=== PATIENT | female | born 1945 ===

== ENCOUNTER 2016-08-29 17:09 | Inpatient (IN) | payer OTHER, MEDICAID ==
[2016-08-29 17:30] VITALS: BMI 28.7
[2016-08-29] MEDS ORDERED: Naproxen 500 MG TAB PO PRN (20:35)
[2016-08-29] MEDS ORDERED: Lidocaine 5% Patch TD PRN (20:35)
[2016-08-29] MEDS: Insulin Regular 100 units/ml SC SCH (22:06)
--- NOTE | 2016-08-29 23:53 | CP.PCM.HP ---
History of Present Illness - History of Present Illness History of Present Illness: PCP: not on staff Chief Complaint: Generalized weakness, HPI: 71 years old female with Hx of DDD, Right shoulder calcific Tendonitis, Anxiety, HTN, HLD, DM II, Transferred from [facility] ([facility] for continuation of treatment. She was admitted on 08/23/16 at the [facility] ([facility]) for low blood sugar,associated with weakness worse on the right side than the left extremities. She uses a cane since 2010 after she fell.She has chronic abdominal and Pelvic pain also pain to Poaterion left thigh, her blood sugar is improving but her Pains, body aches persists. No fever, nausea, vomits , diarrhea nor chest pain. PMH: Lower back pain; DDD; Degenerative Arthritis of knee; calcific Tendonitis of the right shoulder; Mild DiastolicDysfunction; Anxiety; Asthma; DM II; HTN; HLD PSH: No known Past surgical hx SH: former smoker 26 years quit; Quit Alcohol 1988 FH: No known family hx Allergies: NKDA Present on Admission - Present on Admission Any Indicators Present on Admission: No History of DVT/PE: No History of Uncontrolled Diabetes: No Urinary Catheter: No Decubitus Ulcer Present: No Review of Systems - Constitutional Constitutional: absent: Anorexia, Chills, Fatigue, Fever, Headache - EENT Eyes: Requires Corrective Lenses. absent: Diplopia, Floaters, Sees Flashes Ears: absent: Decreased Hearing, Ear Discharge, Ear Pain, Tinnitus Nose/Mouth/Throat: absent: Epistaxis, Nasal Congestion, Nasal Discharge, Sinus Pain, Sinus Pressure - Cardiovascular Cardiovascular: absent: Chest Pain, Dyspnea, Edema - Respiratory Respiratory: absent: Cough, Stridor, Chest Congestion - Gastrointestinal Gastrointestinal: absent: Constipation, Diarrhea, Heartburn - Genitourinary Genitourinary: absent: Dysuria, Flank Pain, Hematuria, Pyuria, Urinary Hesitance - Musculoskeletal Musculoskeletal: Arthralgias. absent: Muscle Weakness, Myalgias - Integumentary Integumentary: absent: Pruritus, Rash, Skin Ulcer, Sores, Striae, Swelling - Neurological Neurological: absent: Confusion, Dizziness, Focal Weakness, Headaches - Psychiatric Psychiatric: Anxiety. absent: Confusion, Depression, Panic Attacks - Endocrine Endocrine: absent: Palpitations, Polydipsia, Polyphagia, Polyuria - Hematologic/Lymphatic Hematologic: absent: Easy Bleeding, Easy Bruising Past Patient History - Infectious Disease Hx of Infectious Diseases: None - Past Medical History & Family History Past Medical History?: Yes - Past Social History Smoking Status: Never Smoked Chewing Tobacco Use: No Cigar Use: No Alcohol: None Drugs: Denies Home Situation {Lives}: With Family - CARDIAC Hx Cardiac Disorders: No Hx Hypercholesterolemia: Yes Hx Hypertension: Yes - PULMONARY Hx Asthma: Yes - NEUROLOGICAL Hx Neurological Disorder: Yes Hx Vertigo: Yes - HEENT Hx HEENT Problems: No - RENAL Hx Chronic Kidney Disease: No - ENDOCRINE/METABOLIC Hx Diabetes Mellitus Type 2: Yes - HEMATOLOGICAL/ONCOLOGICAL Hx Blood Disorders: No Hx Blood Transfusions: No - INTEGUMENTARY Hx Dermatological Problems: No - MUSCULOSKELETAL/RHEUMATOLOGICAL Hx Arthritis: Yes Hx Falls: Yes - GASTROINTESTINAL Hx Gastrointestinal Disorders: Yes Hx Hemorrhoids: Yes - GENITOURINARY/GYNECOLOGICAL Hx Genitourinary Disorders: No - PSYCHIATRIC Hx Anxiety: Yes Hx Substance Use: No - SURGICAL HISTORY Hx Surgeries: Yes Other/Comment: Bladder Mesh , 3 Yrs Ago. - ANESTHESIA Hx Anesthesia: Yes Hx Anesthesia Reactions: No Hx Malignant Hyperthermia: No Meds Allergies/Adverse Reactions: Allergies Allergy/AdvReac Type Severity Reaction Status Date / Time No Known Allergies Allergy Verified 08/23/16 02:34 Physical Exam - Head Exam Head Exam: ATRAUMATIC, NORMAL INSPECTION, NORMOCEPHALIC - Eye Exam Eye Exam: EOMI, Normal appearance Pupil Exam: NORMAL ACCOMODATION, PERRL - ENT Exam ENT Exam: Mucous Membranes Moist, Normal Exam, Normal External Ear Exam, Normal Oropharynx - Neck Exam Neck exam: Positive for: Full Rom, Normal Inspection. Negative for: Lymphadenopathy, Tenderness - Respiratory Exam Respiratory Exam: Clear to Auscultation Bilateral. absent: Rales, Rhonchi, Wheezes - Cardiovascular Exam Cardiovascular Exam: REGULAR RHYTHM, +S1, +S2. absent: Gallop, RRR - GI/Abdominal Exam GI & Abdominal Exam: Normal Bowel Sounds, Soft. absent: Mass, Organomegaly, Tenderness - Rectal Exam Rectal Exam: Deferred - Extremities Exam Extremities exam: Positive for: full ROM, normal inspection. Negative for: calf tenderness, joint swelling - Back Exam Back exam: NORMAL INSPECTION. absent: CVA tenderness (L), CVA tenderness (R) - Neurological Exam Neurological exam: Alert, CN II-XII Intact, Oriented x3, Reflexes Normal - Psychiatric Exam Psychiatric exam: Normal Affect, Normal Mood - Skin Skin Exam: Dry, Intact, Normal Color, Pallor Results - Vital Signs Recent Vital Signs: Last Vital Signs Temp 97.9 F 08/29/16 20:23 Pulse 68 08/29/16 20:23 Resp 20 08/29/16 20:23 BP 145/68 08/29/16 20:23 Pulse Ox 100 08/29/16 20:23 - Labs Result Diagrams: 08/30/16 07:30 08/30/16 07:30 Labs: Laboratory Results - last 24 hr 08/29/16 21:06 POC Glucose (mg/dL) 300 H Assessment & Plan - Assessment and Plan (Free Text) Assessment: #. Weakness #. DM with hyperglycemia #. Hypoglycemia #. Dehydration #. Anemia #. HTN Plan: 71 years old female with Hx of DDD, Right shoulder calcific Tendonitis, Anxiety , HTN, HLD, DM II, Transferred from [facility] ([facility] for continuation of treatment. She was admitted on 08/23/16 at the [facility] for low blood sugar,associated with weakness worse on the right side than the left extremities. She uses a cane since 2010 after she fell. #. Weakness - Physical Therapy/ occupational therapy #. DM with hyperglycemia - Diabetic Diet - Metformin/Aspart sliding scale according to sliding scale - HbA1c 6.6 on 08/26/16 #. Hypoglycemia - Metformin once daily isntead of BID - Levemir HS and not BIDMonitor patients diet - monitor Blood glucoseACHS #. Dehydration - Encourage Oral fluids - follow renal labs weekly #. Anemia - follow Hb DVT prophylaxis with Lovenox # Code Status: Full - Date & Time Date: 08/29/16 Time: 23:52
[2016-08-30] MEDS: Insulin Regular 100 units/ml SC SCH ×4 (06:35→21:34)
[2016-08-30 08:15] LABS: HEMATOCRIT 30.8 % (34.0-47.0); MEAN CELL VOLUME 84.4 fl (81.0-99.0); MEAN CORPUSCULAR HEMOGLOBIN 27.9 pg (27.0-31.0); MEAN CORPUSCULAR HGB CONC 33.1 g/dL (33.0-37.0); RED CELL DISTRIBUTION WIDTH 14.1 % (11.5-14.5); WHITE BLOOD COUNT 7.3 K/uL (4.8-10.8)
[2016-08-30 08:25] LABS: BLOOD UREA NITROGEN 19 mg/dl (7-17); CALCIUM 8.8 mg/dL (8.4-10.2); CARBON DIOXIDE 27 mmol/L (22-30); CHLORIDE 104 mmol/L (98-107); GFR AFRICAN-AMERICAN > 60; GLUCOSE,RANDOM 200 mg/dL (65-105); POTASSIUM 4.6 MMOL/L (3.6-5.0); SODIUM 141 mmol/l (132-148)
[2016-08-30 08:42] LABS: PARTIAL THROMBOPLASTIN TIME 25.4 SECONDS (23.3-32.5)
[2016-08-30] MEDS: Lidocaine 5% Patch TD SCH (08:59)
[2016-08-30] MEDS: Pantoprazole 40 mg EC Tab PO SCH (08:59)
[2016-08-30] MEDS: Enoxaparin 40 mg Syringe SC SCH (09:00)
[2016-08-30] MEDS ORDERED: Insulin Regular 100 units/ml SC ONE (11:30)
[2016-08-31] MEDS: Insulin Regular 100 units/ml SC SCH ×4 (06:49→21:51)
[2016-08-31] MEDS: Naproxen 500 MG TAB PO PRN (08:42)
[2016-08-31] MEDS: Pantoprazole 40 mg EC Tab PO SCH (08:43)
[2016-08-31] MEDS: Enoxaparin 40 mg Syringe SC SCH (08:43)
[2016-08-31] MEDS: Lidocaine 5% Patch TD SCH (08:44)
--- NOTE | 2016-08-31 14:28 | CP.PCM.PN ---
Subjective - Date & Time of Evaluation Date of Evaluation: 08/31/16 Time of Evaluation: 15:30 - Subjective Subjective: Patient was seen and evaluated . Sitting in the chair in NAD. Patient was transferred from [facility] for physical therapy due to her unstable gait, knee and hip pain. As per staff patient is insisting that she was told she needed to have an US done for her left hip pain that was not performed. All chart and prior medical records reviewed. Patient was seen at [facility] ER 08/16/16 for left hip pain of 1 day duration , with no history of trauma . Patient had pelvis, Left knee and left foot imaging that showed no acute fracture or dislocation and was discharged home. This time patient sent to [facility] for hypoglycemia episode and transferred [facility] for [facility] due to her gait instability , hip and knee pain.She denies any recent trauma or fall. Explained to patient results of imaging performed 08/16 by showing the Xray-s in the computer , but patient seems to be convinced that she did not have any imaging done and that the chart most likely is tampered with. During the conversation patient seems to go back and forth, bringing up her old admissions at [facility] , [facility], [place] complaining and being discontent . Appears to anxious,refusing to say the name of her PMD, not giving permission to call her daughter. At present explained to the patient that she has been transferred from [facility] to [facility] for physical therapy due to her unstable gait, knee and kip pain and that we will do our best to help her to achieve `her goals. At this point in time there is no need for further imaging. Will follow up Objective - Vital Signs/Intake and Output Vital Signs (last 24 hours): Temp Pulse Resp BP Pulse Ox 97.8 F 72 20 136/59 L 99 08/31/16 08:21 08/31/16 08:21 08/31/16 08:21 08/31/16 08:21 08/31/16 08:21 - Medications Medications: Current Medications Acetaminophen (Tylenol 325mg Tab) 650 mg PO Q6 PRN PRN Reason: moderate pain Atorvastatin Calcium (Lipitor) 20 mg PO HS [facility] Last Admin: 08/30/16 21:34 Dose: 20 mg Enoxaparin Sodium (Lovenox) 40 mg SC DAILY [facility] PRN Reason: Protocol Last Admin: 08/31/16 08:43 Dose: 40 mg Insulin Human Regular (Humulin R) 0 units SC ACHS [facility] PRN Reason: Protocol Last Admin: 08/31/16 12:04 Dose: 5 units Lidocaine (Lidoderm) 1 ea TD DAILY [facility] Last Admin: 08/31/16 08:44 Dose: 1 ea Metformin HCl (Glucophage) 1,000 mg PO BRK [facility] Last Admin: 08/31/16 08:41 Dose: 1,000 mg Naproxen (Naproxen) 500 mg PO BID PRN PRN Reason: Pain Last Admin: 08/31/16 08:42 Dose: 500 mg Pantoprazole Sodium (Protonix Ec Tab) 40 mg PO DAILY [facility] Last Admin: 08/31/16 08:43 Dose: 40 mg - Labs Labs: 08/30/16 07:30 08/30/16 07:30 PT 10.3 SECONDS (9.6-11.2) 08/30/16 07:30 INR 0.99 (0.92-1.08) 08/30/16 07:30 APTT 25.4 SECONDS (23.3-32.5) 08/30/16 07:30 - Constitutional Appears: Non-toxic, No Acute Distress, Agitated - Head Exam Head Exam: ATRAUMATIC, NORMOCEPHALIC - Eye Exam Eye Exam: Normal appearance Pupil Exam: NORMAL ACCOMODATION - ENT Exam ENT Exam: Mucous Membranes Moist, Normal Exam - Neck Exam Neck Exam: Normal Inspection - Respiratory Exam Respiratory Exam: NORMAL BREATHING PATTERN. absent: Accessory Muscle Use, Respiratory Distress - Rectal Exam Rectal Exam: Deferred - Extremities Exam Extremities Exam: Normal Capillary Refill. absent: Joint Swelling, Pedal Edema - Neurological Exam Neurological Exam: Alert, Awake Additional comments: no gross neuro deficits - Psychiatric Exam Psychiatric exam: Agitated, Anxious Additional comments: disperse thought process - Skin Skin Exam: Normal Color Assessment and Plan - Assessment and Plan (Free Text) Assessment: 71 years old female with Hx of DDD, Right shoulder calcific Tendonitis, Anxiety , HTN, HLD, DM II, Transferred from [facility] for phyysical therapy due to unstable gait She was admitted on 08/23/[address] [facility] for low blood sugar,associated with weakness worse on the right side than the left extremities. She uses a cane since 2010 after she fell. 1.Unstable gait due to multiple DJD / knee, hip and generalized Weakness Continue Physical Therapy/ occupational therapy in TCU Imaging of hip , left knee , left foot and hip done at [facility] showed no fracture or dislocation No further imaging necessary Continue pain management , Lidoderm patch, naproxen 2. DM with hyperglycemia Continue Diabetic Diet Changed Metformin to 1000 mg daily and Regular insulin once a day Continue Aspart sliding scale HbA1c 6.6 on 08/26/16 3.Anemia unclear etiology 4. Dyslipidemia on statin 5. Anxiety 6.DVT prophylaxis Lovenox
[2016-09-01] MEDS: Insulin Regular 100 units/ml SC SCH ×4 (08:40→21:35)
[2016-09-01] MEDS: Lidocaine 5% Patch TD SCH (08:59)
[2016-09-01] MEDS: Pantoprazole 40 mg EC Tab PO SCH (08:59)
[2016-09-01] MEDS: Enoxaparin 40 mg Syringe SC SCH (09:01)
[2016-09-01] MEDS: Naproxen 500 MG TAB PO PRN (18:45)
[2016-09-02] MEDS: Insulin Regular 100 units/ml SC SCH ×4 (06:43→21:17)
[2016-09-02] MEDS: Naproxen 500 MG TAB PO PRN (08:58)
[2016-09-02] MEDS: Pantoprazole 40 mg EC Tab PO SCH (08:58)
[2016-09-02] MEDS: Lidocaine 5% Patch TD SCH (08:59)
[2016-09-02] MEDS: Enoxaparin 40 mg Syringe SC SCH (08:59)
[2016-09-03] MEDS: Insulin Regular 100 units/ml SC SCH ×4 (06:59→21:36)
[2016-09-03] MEDS: Pantoprazole 40 mg EC Tab PO SCH (09:07)
[2016-09-03] MEDS: Lidocaine 5% Patch TD SCH (09:07)
[2016-09-03] MEDS: Naproxen 500 MG TAB PO PRN (17:44)
[2016-09-03 19:14] LABS: PARTIAL THROMBOPLASTIN TIME 34.8 Seconds (25.6-37.1)
[2016-09-04] MEDS: Insulin Regular 100 units/ml SC SCH ×4 (06:39→21:26)
[2016-09-04] MEDS: Pantoprazole 40 mg EC Tab PO SCH (09:26)
[2016-09-04] MEDS: Lidocaine 5% Patch TD SCH (09:27)
[2016-09-04 13:00] LABS: BLOOD UREA NITROGEN 30 mg/dl (7-17); CALCIUM 9.5 mg/dL (8.4-10.2); CARBON DIOXIDE 27 mmol/L (22-30); CHLORIDE 102 mmol/L (98-107); GFR AFRICAN-AMERICAN > 60; GLUCOSE,RANDOM 270 mg/dL (65-105); POTASSIUM 4.5 MMOL/L (3.6-5.0); SODIUM 139 mmol/l (132-148)
[2016-09-04] MEDS: Enoxaparin 40 mg Syringe SC SCH (16:02)
[2016-09-04] MEDS: Naproxen 500 MG TAB PO PRN (21:58)
[2016-09-05] MEDS: Insulin Regular 100 units/ml SC SCH ×4 (06:33→22:04)
[2016-09-05 08:05] VITALS: RESP 20
[2016-09-05] MEDS: Enoxaparin 40 mg Syringe SC SCH (09:05)
[2016-09-05] MEDS: Pantoprazole 40 mg EC Tab PO SCH (09:06)
[2016-09-05] MEDS: Naproxen 500 MG TAB PO PRN (09:07)
[2016-09-05] MEDS: Lidocaine 5% Patch TD SCH (09:08)
--- NOTE | 2016-09-05 11:43 | CP.PCM.PN ---
Subjective - Date & Time of Evaluation Date of Evaluation: 09/05/16 Time of Evaluation: 11:40 - Subjective Subjective: patient seen during physical therapy patient doing well, ambulating with therapist without difficulty patient OK for dc tomorow Objective - Vital Signs/Intake and Output Vital Signs (last 24 hours): Temp Pulse Resp BP Pulse Ox 97.3 F L 70 20 159/69 H 100 09/05/16 08:01 09/05/16 08:01 09/05/16 08:01 09/05/16 08:01 09/05/16 08:01 - Medications Medications: Current Medications Acetaminophen (Tylenol 325mg Tab) 650 mg PO Q6 PRN PRN Reason: moderate pain Atorvastatin Calcium (Lipitor) 20 mg PO HS [facility] Last Admin: 09/04/16 21:26 Dose: 20 mg Enoxaparin Sodium (Lovenox) 40 mg SC DAILY [facility] PRN Reason: Protocol Last Admin: 09/05/16 09:05 Dose: 40 mg Insulin Human Regular (Humulin R) 0 units SC ACHS [facility] PRN Reason: Protocol Last Admin: 09/05/16 06:33 Dose: 3 units Lidocaine (Lidoderm) 1 ea TD DAILY [facility] Last Admin: 09/05/16 09:08 Dose: 1 ea Metformin HCl (Glucophage) 1,000 mg PO BRK [facility] Last Admin: 09/05/16 08:00 Dose: 1,000 mg Naproxen (Naproxen) 500 mg PO BID PRN PRN Reason: Pain Last Admin: 09/05/16 09:07 Dose: 500 mg Pantoprazole Sodium (Protonix Ec Tab) 40 mg PO DAILY [facility] Last Admin: 09/05/16 09:06 Dose: 40 mg - Labs Labs: 08/30/16 07:30 09/04/16 12:20 PT 11.0 Seconds (9.8-13.1) 09/03/16 18:48 INR 1.0 (0.9-1.2) 09/03/16 18:48 APTT 34.8 Seconds (25.6-37.1) 09/03/16 18:48 - Constitutional Appears: Non-toxic, No Acute Distress - Head Exam Head Exam: ATRAUMATIC, NORMOCEPHALIC - Eye Exam Eye Exam: EOMI, Normal appearance, PERRL - ENT Exam ENT Exam: Mucous Membranes Moist, Normal Oropharynx - Neck Exam Neck Exam: Full ROM, Normal Inspection - Respiratory Exam Respiratory Exam: Clear to Ausculation Bilateral, NORMAL BREATHING PATTERN - Cardiovascular Exam Cardiovascular Exam: RRR, +S1, +S2 - GI/Abdominal Exam GI & Abdominal Exam: Soft, Normal Bowel Sounds. absent: Tenderness, Mass - Extremities Exam Extremities Exam: Normal Capillary Refill. absent: Calf Tenderness - Back Exam Back Exam: absent: CVA tenderness (L), CVA tenderness (R) - Neurological Exam Neurological Exam: Alert, Awake - Psychiatric Exam Psychiatric exam: Normal Affect, Normal Mood - Skin Skin Exam: Dry, Warm Assessment and Plan - Assessment and Plan (Free Text) Plan: 71 years old female with Hx of DDD, Right shoulder calcific Tendonitis, Anxiety , HTN, HLD, DM II, Transferred from [facility] for phyysical therapy due to unstable gait She was admitted on 08/23/16 at the [facility] for low blood sugar,associated with weakness worse on the right side than the left extremities. She uses a cane since 2010 after she fell. Patient doing well with PT, OK for discharge home tomorrow 1.Unstable gait due to multiple DJD / knee, hip and generalized Weakness Continue Physical Therapy/ occupational therapy in TCU Imaging of hip , left knee , left foot and hip done at [facility] showed no fracture or dislocation No further imaging necessary Continue pain management , Lidoderm patch, naproxen 2. DM with hyperglycemia Continue Diabetic Diet Changed Metformin to 1000 mg daily and Regular insulin once a day Continue Aspart sliding scale HbA1c 6.6 on 08/26/16 3.Anemia unclear etiology 4. Dyslipidemia on statin 5. Anxiety 6.DVT prophylaxis Lovenox
[2016-09-06] MEDS: Insulin Regular 100 units/ml SC SCH ×3 (07:50→16:23)
[2016-09-06 07:57] VITALS: O2SAT 99
[2016-09-06] MEDS: Pantoprazole 40 mg EC Tab PO SCH (08:36)
[2016-09-06] MEDS: Lidocaine 5% Patch TD SCH (08:37)
[2016-09-06] MEDS: Enoxaparin 40 mg Syringe SC SCH (08:37)
--- NOTE | 2016-09-06 14:32 | CP.PCM.DIS ---
Provider - Provider Date of Admission: 08/29/16 17:30 Attending physician: Fabrizio Leyva MD Time Spent in preparation of Discharge (in minutes): 30 Diagnosis - Discharge Diagnosis (1) Arthritis Status: Acute Hospital Course - Lab Results Lab Results: Most Recent Lab Values WBC 7.3 K/uL (4.8-10.8) 08/30/16 07:30 RBC 3.65 Mil/uL (3.80-5.20) L 08/30/16 07:30 Hgb 10.2 g/dL (12.0-16.0) L 08/30/16 07:30 Hct 30.8 % (34.0-47.0) L 08/30/16 07:30 MCV 84.4 fl (81.0-99.0) 08/30/16 07:30 MCH 27.9 pg (27.0-31.0) 08/30/16 07:30 MCHC 33.1 g/dL (33.0-37.0) 08/30/16 07:30 RDW 14.1 % (11.5-14.5) 08/30/16 07:30 Plt Count 296 K/uL (130-400) 08/30/16 07:30 PT 11.0 Seconds (9.8-13.1) 09/03/16 18:48 INR 1.0 (0.9-1.2) 09/03/16 18:48 APTT 34.8 Seconds (25.6-37.1) 09/03/16 18:48 Sodium 139 mmol/l (132-148) 09/04/16 12:20 Potassium 4.5 MMOL/L (3.6-5.0) 09/04/16 12:20 Chloride 102 mmol/L (98-107) 09/04/16 12:20 Carbon Dioxide 27 mmol/L (22-30) 09/04/16 12:20 Anion Gap 15 (10-20) 09/04/16 12:20 BUN 30 mg/dl (7-17) H 09/04/16 12:20 Creatinine 0.8 mg/dL (0.7-1.2) 09/04/16 12:20 Est GFR ( Amer) > 60 09/04/16 12:20 Est GFR (Non-Af Amer) > 60 09/04/16 12:20 POC Glucose (mg/dL) 335 mg/dL (65-110) H 09/06/16 10:40 Random Glucose 270 mg/dL (65-105) H 09/04/16 12:20 Calcium 9.5 mg/dL (8.4-10.2) 09/04/16 12:20 - Hospital Course Hospital Course: 71 years old female with Hx of DDD, Right shoulder calcific Tendonitis, Anxiety , HTN, HLD, DM II, Transferred from [facility] for physical therapy due to unstable gait She was admitted on 08/23/16 at the [facility] for low blood sugar,associated with weakness worse on the right side than the left extremities. She uses a cane since 2010 after she fell. Patient doing well with PT, OK for discharge home in stable condition 1.Unstable gait due to multiple DJD / knee, hip and generalized Weakness Continue Physical Therapy/ occupational therapy in TCU Imaging of hip , left knee , left foot and hip done at [facility] showed no fracture or dislocation No further imaging necessary Continue pain management , Lidoderm patch, naproxen 2. DM with hyperglycemia Continue Diabetic Diet Changed Metformin to 1000 mg daily and Regular insulin once a day Continue Aspart sliding scale HbA1c 6.6 on 08/26/16 3.Anemia unclear etiology 4. Dyslipidemia on statin 5. Anxiety 6.DVT prophylaxis Lovenox Discharge Exam - Head Exam Head Exam: ATRAUMATIC, NORMOCEPHALIC - Eye Exam Eye Exam: EOMI, Normal appearance, PERRL Pupil Exam: NORMAL ACCOMODATION - ENT Exam ENT Exam: Mucous Membranes Moist, Normal Oropharynx - Neck Exam Neck exam: Full Rom, Normal Inspection - Respiratory Exam Respiratory Exam: Clear to PA & Lateral, NORMAL BREATHING PATTERN - Cardiovascular Exam Cardiovascular Exam: RRR, +S1, +S2 - GI/Abdominal Exam GI & Abdominal Exam: Normal Bowel Sounds, Soft. absent: Mass, Tenderness - Extremities Exam Extremities exam: normal capillary refill, pedal pulses present - Back Exam Back exam: absent: CVA tenderness (L), CVA tenderness (R) - Neurological Exam Neurological exam: Alert, Oriented x3 - Psychiatric Exam Psychiatric exam: Agitated, Normal Affect - Skin Skin Exam: Dry, Warm Discharge Plan - Discharge Medications Prescriptions: Lidocaine 5% [Lidoderm] 1 ea TD DAILY #30 patch MetFORMIN [glucoPHAGE] 1,000 mg PO BRK #60 tab Naproxen [Naprosyn] 1 tab PO BID PRN #25 tab PRN Reason: Pain Pantoprazole [Protonix EC Tab] 40 mg PO DAILY #30 ect Simvastatin 40 mg PO HS #30 - Follow Up Plan Condition: GOOD Disposition: HOME/ ROUTINE Instructions: Diabetes Mellitus Type 2 in Adults (DC) Additional Instructions: FOLLOW UP PCP ONE WEEK RESUME HOME MEDS RESUME HEART HEALTHY DIET RESUME ACTIVITY TOLERATED RETURN TO ER IF CONDITION WORSENS
[2016-09-06 16:12] VITALS: BP 157/61; PULSE 72; TEMP 97.5
== END 2016-09-06 20:00 | disposition home or self-care (01) | DRG 93 ==
LOC: H.TCU 17:30
PROVIDERS: ADMIT Family Medicine; ATTEND Family Medicine
PROC: F07Z9FZ Gait Training/Functional Ambulation Treatment using Assistive, Adaptive, Supportive or Protective Equipment (ICD-10-PCS; principal; 2016-08-29)
PROC: F08Z4FZ Home Management Treatment using Assistive, Adaptive, Supportive or Protective Equipment (ICD-10-PCS; 2016-08-29)
PROC: F07L6FZ Therapeutic Exercise Treatment of Musculoskeletal System - Lower Back / Lower Extremity using Assistive, Adaptive, Supportive or Protective Equipment (ICD-10-PCS; 2016-08-29)
DX: R26.81 Unsteadiness on feet (principal); E11.65 Type 2 diabetes mellitus with hyperglycemia; D64.9 Anemia, unspecified; M17.12 Unilateral primary osteoarthritis, left knee; M16.12 Unilateral primary osteoarthritis, left hip; E78.5 Hyperlipidemia, unspecified; I10 Essential (primary) hypertension; J45.909 Unspecified asthma, uncomplicated; E86.0 Dehydration; F41.9 Anxiety disorder, unspecified; G89.29 Other chronic pain; M54.5 Low back pain; M75.81 Other shoulder lesions, right shoulder; Z87.891 Personal history of nicotine dependence

== ENCOUNTER 2017-10-30 19:15 | Observation (INO) | payer MEDICARE, MEDICAID ==
[2017-10-30 19:18] VITALS: BMI 33.3
[2017-10-30] MEDS ORDERED: Iohexol 240 (50 ml) PO ONE (19:56)
[2017-10-30 20:10] LABS: BASO % 0.4 % (0.0-2.0); EOS # 0.1 K/uL (0.0-0.7); EOS % 0.8 % (0.0-4.0); HEMOGLOBIN 10.6 g/dL (12.0-16.0); LYMPH # 1.7 K/uL (1.0-4.3); LYMPH % 18.4 % (20.0-40.0); MEAN CELL VOLUME 85.6 fl (81.0-99.0); MEAN CORPUSCULAR HEMOGLOBIN 28.5 pg (27.0-31.0); MEAN CORPUSCULAR HGB CONC 33.3 g/dL (33.0-37.0); MEAN PLATELET VOLUME 7.2 fl (7.2-11.7); MONO # 0.7 K/uL (0.0-0.8); NEUT # 6.7 K/uL (1.8-7.0); NEUT % 72.4 % (50.0-75.0); RBC 3.72 Mil/uL (3.80-5.20); RED CELL DISTRIBUTION WIDTH 13.3 % (11.5-14.5); WHITE BLOOD COUNT 9.3 K/uL (4.8-10.8)
[2017-10-30 20:26] LABS: ALB/GLOB RATIO 1.3 (1.0-2.1); ALT/SGPT 26 U/L (9-52); AST/SGOT 37 U/L (14-36); BLOOD UREA NITROGEN 26 mg/dl (7-17); CALCIUM 9.5 mg/dL (8.4-10.2); GFR AFRICAN-AMERICAN > 60; GFR NON-AFRICAN AMERICAN > 60; LIPASE 349 U/L (23-300)
[2017-10-30 20:37] LABS: PARTIAL THROMBOPLASTIN TIME 38.1 Seconds (25.6-37.1)
[2017-10-30] MEDS ORDERED: Dextrose 50% SYRINGE Inj (50 ml) IVP STA (20:38)
[2017-10-30] MEDS ORDERED: Iohexol 240 (50 ml) ONE (20:57)
--- NOTE | 2017-10-30 21:33 | ED PDOC ---
HPI: Abdomen Time Seen by Provider: 10/30/17 19:24 Chief Complaint (Nursing): GI Problem Chief Complaint (Provider): GI Problem History Per: Patient History/Exam Limitations: no limitations Onset/Duration Of Symptoms: Days (x1) Outside of [place] travel?: No Current Symptoms Are (Timing): Still Present Additional Complaint(s): 72 year old female with pmHx of HTN, DM and HCL, arrives to ED with complaints of pain diffusely in the lower abdomen for 1 day and copious watery, non-bloody diarrhea since 1800. She reports associated dizziness, decreased appetite and chills. She denies any fever, recent travel, sick contacts or antibiotic use. PMD: Dr. Parish Wetzel Past Medical History Reviewed: Historical Data, Nursing Documentation, Vital Signs Vital Signs: Last Vital Signs Temp 98.1 F 11/01/17 08:14 Pulse 63 11/01/17 08:14 Resp 20 11/01/17 08:14 BP 171/66 H 11/01/17 08:14 Pulse Ox 98 11/01/17 08:14 - Medical History PMH: Anxiety, Arthritis, Asthma, Back Problems, Diabetes, HTN, Hypercholesterolemia Denies: Chronic Kidney Disease - Surgical History Surgical History: Denies: No Surg Hx Other surgeries: tubal ligation - Family History Family History: States: No Known Family Hx - Social History Current smoker - smoking cessation education provided: No Ex-Smoker (has not smoked in the last 12 months): No Alcohol: None Drugs: Denies - Immunization History Hx Tetanus Toxoid Vaccination: No Hx Influenza Vaccination: No Hx Pneumococcal Vaccination: No - Home Medications Home Medications: Ambulatory Orders Medication Instructions Recorded Omeprazole 40 mg PO DAILY 10/31/17 MetFORMIN [glucoPHAGE] 1,000 mg PO BID #60 tab 11/01/17 - Allergies Allergies/Adverse Reactions: Allergies Allergy/AdvReac Type Severity Reaction Status Date / Time No Known Allergies Allergy Verified 08/23/16 02:34 Review of Systems ROS Statement: Except As Marked, All Systems Reviewed And Found Negative Constitutional: Positive for: Chills. Negative for: Fever Gastrointestinal: Positive for: Abdominal Pain (diffuse, mostly lower), Diarrhea (watery, nonbloody), Other (decreased appetite) Neurological: Positive for: Dizziness (lightheaded) Physical Exam - Reviewed Nursing Documentation Reviewed: Yes Vital Signs Reviewed: Yes - Physical Exam Appears: Positive for: Well, No Acute Distress Head Exam: Positive for: ATRAUMATIC, NORMOCEPHALIC Skin: Positive for: Warm, Dry Eye Exam: Positive for: EOMI, PERRL ENT: Positive for: Other (tacky mucus membranes). Negative for: Pharyngeal Erythema, Tonsillar Exudate Neck: Positive for: Painless ROM, Supple Cardiovascular/Chest: Positive for: Regular Rate, Rhythm. Negative for: Murmur Respiratory: Positive for: Normal Breath Sounds. Negative for: Respiratory Distress Gastrointestinal/Abdominal: Positive for: Bowel Sounds (hyperactive), Soft, Tenderness (bilateral LQ). Negative for: Mass, Distended, Guarding, Rebound Back: Positive for: Normal Inspection. Negative for: Decreased ROM Extremity: Positive for: Normal ROM. Negative for: Deformity Lymphatic: Negative for: Adenopathy Neurologic/Psych: Positive for: Alert. Negative for: Motor/Sensory Deficits - Laboratory Results Result Diagrams: 10/30/17 20:06 10/31/17 07:04 - ECG O2 Sat by Pulse Oximetry: 99 (RA) Pulse Ox Interpretation: Normal Medical Decision Making Medical Decision Making: Initial Impression: Diarrhea; abdominal pain Differential includes but not limited to: enteritis, colitis, diverticulitis, viral syndrome, dehydration Initial Plan: * CT ABD/pelvis with PO and IV contrast * EKG * Alcohol serum * CMP * Lact acid, plasma * Lipase * Magnesium * Phosphorous * Troponin I * Urine dipstick * CBC * PTT * PT * Accucheck * Omnipaque 240 50ml PO Time: 2047 --Accucheck: 47ml/dL --D50 ordered stat with PO juice Time: 2331 CTA ABD/PELVIS RESULTS FINDINGS: Lung bases: Unremarkable. No mass. No consolidation. ABDOMEN: Liver: There is a diffuse decrease in hepatic parenchymal density, consistent with fatty infiltration.There is diffuse mild enlargement of the liver. Gallbladder and bile ducts: The gallbladder is contracted but otherwise normal. No calcified stones. No ductal dilation. Pancreas: Unremarkable. No mass. No ductal dilation. Spleen: There is a too small to characterize low-density lesion in the spleen. Adrenals: Unremarkable. No mass. Kidneys and ureters: Unremarkable. No solid mass. No hydronephrosis. Stomach and bowel: There is a duodenal diverticulum present. There is no wall thickening or pericolonic stranding to suggest colitis. No obstruction. PELVIS: Appendix: The appendix is top normal measuring 6 mm.There is no evidence of adjacent inflammatory stranding. Bladder: Unremarkable. No mass. Reproductive: Calcified fibroid ABDOMEN and PELVIS: Intraperitoneal space: Unremarkable. No free air. No significant fluid collection. Bones/joints: No acute fracture. No dislocation. Soft tissues: Unremarkable. Vasculature: Unremarkable. No abdominal aortic aneurysm. Lymph nodes: Unremarkable. No enlarged lymph nodes. IMPRESSION: No acute findings. Thank you for allowing us to participate in the care of your patient. Dictated and Authenticated by: Gissell Stein MD 10/30/2017 11:31 PM Eastern Time ([place] & [place]) On reevaluation pt has persistent pain, diarrhea AND low glucose levels. Needs hospitalization for prolonged hypoglycemia and intractable abdominal pain. [facility] medical service. Scribe Attestation: Documented by Anette Jewell, acting as a scribe for Laura Venegas MD. Provider Scribe Attestation: All medical record entries made by the Scribe were at my direction and personally dictated by me. I have reviewed the chart and agree that the record accurately reflects my personal performance of the history, physical exam, medical decision making, and the department course for this patient. I have also personally directed, reviewed, and agree with the discharge instructions and disposition. Disposition - Clinical Impression Clinical Impression: Abdominal pain, Hypoglycemia Counseled Patient/Family Regarding: Studies Performed, Diagnosis - Disposition Disposition Time: 23:00 Condition: FAIR - Pt Status Changed To: Hospital Disposition Of: Observation - POA Present On Arrival: Poor Glycemic Control
[2017-10-30] MEDS ORDERED: Sodium Chloride 0.9% 50 ML IV ONE (22:32)
[2017-10-30] MEDS ORDERED: Iohexol 300 100 ML IJ ONE (22:32)
[2017-10-30 23:15] LABS: SQUAMOUS EPITHIAL 3 /hpf (0-5); URINE BACTERIA FEW (<OCC); URINE BILIRUBIN NEGATIVE (NEGATIVE); URINE BLOOD NEGATIVE (NEGATIVE); URINE CLARITY SLIGHTY-CLOUDY (Clear); URINE COLOR YELLOW (YELLOW); URINE GLUCOSE (UA) 50 mg/dL (Normal); URINE LEUKOCYTE ESTERASE SMALL Leu/uL (Negative); URINE PROTEIN NEGATIVE (NEGATIVE); URINE UROBILINOGEN 0.2-1.0 mg/dL (0.2-1.0)
[2017-10-30] MEDS ORDERED: Glucagon Recombinant 1 mg Inj IM PRN (23:53)
[2017-10-30] MEDS ORDERED: Dextrose 50% SYRINGE Inj (50 ml) IV PRN (23:53)
[2017-10-31] MEDS ORDERED: Dextrose 5%/0.45% NS 1,000 ML IV SCH (06:45)
[2017-10-31 07:17] LABS: BLOOD UREA NITROGEN 21 mg/dl (7-17); CALCIUM 9.1 mg/dL (8.4-10.2); GFR AFRICAN-AMERICAN > 60; GFR NON-AFRICAN AMERICAN > 60
--- NOTE | 2017-10-31 08:20 | CP.PCM.HP ---
History of Present Illness - History of Present Illness History of Present Illness: 72 YR OLD FEMALE ADMITTED VIA THE ER BECAUSE OF ABDOMINAL PAIN,WATERY DIARRHEA AND HYPOGLYCEMIA X 1 DAY.NOW FEELS BETTER.ACCORDING TO CLARENCE ,SHE HAS BEEN TAKING MULTIPLE ORAL HYPOGLYCEMICS ON AN EMPTY STOMACH.NOW FEELS BETTER AND GLUCOSE HAS IMPROVED. HX OF DIABETES,ARTHRITIS AND HYPERTENSION. FAMILY [id number] NON-SMOKER/ETOH/DRUG USE Present on Admission - Present on Admission Any Indicators Present on Admission: Yes Past Patient History - Infectious Disease Hx of Infectious Diseases: None - Past Medical History & Family History Past Medical History?: Yes - Past Social History Alcohol: None Drugs: Denies - CARDIAC Hx Hypercholesterolemia: Yes Hx Hypertension: Yes - PULMONARY Hx Asthma: Yes - NEUROLOGICAL Hx Neurological Disorder: Yes Hx Vertigo: Yes - HEENT Hx HEENT Problems: No - RENAL Hx Chronic Kidney Disease: No - ENDOCRINE/METABOLIC Hx Endocrine Disorders: Yes Hx Diabetes Mellitus Type 2: Yes - HEMATOLOGICAL/ONCOLOGICAL Hx Blood Disorders: No Hx Blood Transfusions: No - INTEGUMENTARY Hx Dermatological Problems: No - MUSCULOSKELETAL/RHEUMATOLOGICAL Hx Arthritis: Yes - GASTROINTESTINAL Hx Gastrointestinal Disorders: Yes Hx Hemorrhoids: Yes - GENITOURINARY/GYNECOLOGICAL Hx Genitourinary Disorders: No - PSYCHIATRIC Hx Anxiety: Yes - SURGICAL HISTORY Hx Surgeries: Yes Other/Comment: Bladder Mesh , 3 Yrs Ago. - ANESTHESIA Hx Anesthesia: Yes Hx Anesthesia Reactions: No Hx Malignant Hyperthermia: No Meds Allergies/Adverse Reactions: Allergies Allergy/AdvReac Type Severity Reaction Status Date / Time No Known Allergies Allergy Verified 08/23/16 02:34 Physical Exam - Constitutional Appears: Well - Head Exam Head Exam: ATRAUMATIC, NORMAL INSPECTION, NORMOCEPHALIC - Eye Exam Eye Exam: EOMI, Normal appearance, PERRL Pupil Exam: NORMAL ACCOMODATION, PERRL - ENT Exam ENT Exam: Mucous Membranes Moist, Normal Exam - Neck Exam Neck exam: Positive for: Normal Inspection - Respiratory Exam Respiratory Exam: Clear to Auscultation Bilateral, NORMAL BREATHING PATTERN - Cardiovascular Exam Cardiovascular Exam: REGULAR RHYTHM - GI/Abdominal Exam GI & Abdominal Exam: Normal Bowel Sounds, Soft. absent: Tenderness - Rectal Exam Rectal Exam: NORMAL INSPECTION - Extremities Exam Extremities exam: Positive for: normal inspection - Back Exam Back exam: NORMAL INSPECTION - Neurological Exam Neurological exam: Alert, CN II-XII Intact, Normal Gait, Oriented x3, Reflexes Normal - Psychiatric Exam Psychiatric exam: Normal Affect, Normal Mood - Skin Skin Exam: Dry, Intact, Normal Color, Warm Results - Vital Signs Recent Vital Signs: Last Vital Signs Temp 98.4 F 10/31/17 06:32 Pulse 67 10/31/17 06:32 Resp 15 10/31/17 06:32 BP 140/69 10/31/17 06:32 Pulse Ox 100 10/31/17 06:32 - Labs Result Diagrams: 10/30/17 20:06 10/31/17 07:04 Labs: Laboratory Results - last 24 hr 10/30/17 10/30/17 10/30/17 20:06 20:06 20:06 WBC 9.3 RBC 3.72 L Hgb 10.6 L Hct 31.8 L MCV 85.6 MCH 28.5 MCHC 33.3 RDW 13.3 Plt Count 282 MPV 7.2 Neut % (Auto) 72.4 Lymph % (Auto) 18.4 L [place] % (Auto) 8.0 Eos % (Auto) 0.8 Baso % (Auto) 0.4 Neut # (Auto) 6.7 Lymph # (Auto) 1.7 [place] # (Auto) 0.7 Eos # (Auto) 0.1 Baso # (Auto) 0.0 PT INR APTT Sodium 141 Potassium 4.5 Chloride 103 Carbon Dioxide 26 Anion Gap 17 BUN 26 H Creatinine 0.8 Est GFR ( Amer) > 60 Est GFR (Non-Af Amer) > 60 POC Glucose (mg/dL) Random Glucose 67 Lactic Acid 1.8 Calcium 9.5 Phosphorus 4.1 Magnesium 1.6 Total Bilirubin 0.3 AST 37 H ALT 26 Alkaline Phosphatase 72 Troponin I < 0.0120 Total Protein 7.1 Albumin 4.0 Globulin 3.1 Albumin/Globulin Ratio 1.3 Lipase 349 H Urine Color Urine Clarity Urine pH Ur Specific [place] Urine Protein Urine Glucose (UA) Urine Ketones Urine Blood Urine Nitrate Urine Bilirubin Urine Urobilinogen Ur Leukocyte Esterase Urine RBC (Auto) Urine Microscopic WBC Ur Squamous Epith Cells Urine Bacteria Alcohol, Quantitative < 10 10/30/17 10/30/17 10/30/17 20:06 20:35 20:36 WBC RBC Hgb Hct MCV MCH MCHC RDW Plt Count MPV Neut % (Auto) Lymph % (Auto) [place] % (Auto) Eos % (Auto) Baso % (Auto) Neut # (Auto) Lymph # (Auto) [place] # (Auto) Eos # (Auto) Baso # (Auto) PT 11.0 INR 1.0 APTT 38.1 H Sodium Potassium Chloride Carbon Dioxide Anion Gap BUN Creatinine Est GFR ( Amer) Est GFR (Non-Af Amer) POC Glucose (mg/dL) 48 L 47 L Random Glucose Lactic Acid Calcium Phosphorus Magnesium Total Bilirubin AST ALT Alkaline Phosphatase Troponin I Total Protein Albumin Globulin Albumin/Globulin Ratio Lipase Urine Color Urine Clarity Urine pH Ur Specific [place] Urine Protein Urine Glucose (UA) Urine Ketones Urine Blood Urine Nitrate Urine Bilirubin Urine Urobilinogen Ur Leukocyte Esterase Urine RBC (Auto) Urine Microscopic WBC Ur Squamous Epith Cells Urine Bacteria Alcohol, Quantitative 10/30/17 10/30/17 10/31/17 23:05 23:42 06:19 WBC RBC Hgb Hct MCV MCH MCHC RDW Plt Count MPV Neut % (Auto) Lymph % (Auto) [place] % (Auto) Eos % (Auto) Baso % (Auto) Neut # (Auto) Lymph # (Auto) [place] # (Auto) Eos # (Auto) Baso # (Auto) PT INR APTT Sodium Potassium Chloride Carbon Dioxide Anion Gap BUN Creatinine Est GFR ( Amer) Est GFR (Non-Af Amer) POC Glucose (mg/dL) 65 97 Random Glucose Lactic Acid Calcium Phosphorus Magnesium Total Bilirubin AST ALT Alkaline Phosphatase Troponin I Total Protein Albumin Globulin Albumin/Globulin Ratio Lipase Urine Color Yellow Urine Clarity Slighty-cloudy Urine pH 5.0 Ur Specific [place] 1.016 Urine Protein Negative Urine Glucose (UA) 50 Urine Ketones Negative Urine Blood Negative Urine Nitrate Negative Urine Bilirubin Negative Urine Urobilinogen 0.2-1.0 Ur Leukocyte Esterase Small Urine RBC (Auto) 2 Urine Microscopic WBC 8 H Ur Squamous Epith Cells 3 Urine Bacteria Few H Alcohol, Quantitative 10/31/17 07:04 WBC RBC Hgb Hct MCV MCH MCHC RDW Plt Count MPV Neut % (Auto) Lymph % (Auto) [place] % (Auto) Eos % (Auto) Baso % (Auto) Neut # (Auto) Lymph # (Auto) [place] # (Auto) Eos # (Auto) Baso # (Auto) PT INR APTT Sodium 140 Potassium 4.1 Chloride 103 Carbon Dioxide 27 Anion Gap 14 BUN 21 H Creatinine 0.7 Est GFR ( Amer) > 60 Est GFR (Non-Af Amer) > 60 POC Glucose (mg/dL) Random Glucose 106 H Lactic Acid Calcium 9.1 Phosphorus Magnesium Total Bilirubin AST ALT Alkaline Phosphatase Troponin I Total Protein Albumin Globulin Albumin/Globulin Ratio Lipase Urine Color Urine Clarity Urine pH Ur Specific [place] Urine Protein Urine Glucose (UA) Urine Ketones Urine Blood Urine Nitrate Urine Bilirubin Urine Urobilinogen Ur Leukocyte Esterase Urine RBC (Auto) Urine Microscopic WBC Ur Squamous Epith Cells Urine Bacteria Alcohol, Quantitative Assessment & Plan - Assessment and Plan (Free Text) Assessment: ABDOMINAL PAIN WITH DIARRHEA--?ETIOLOGY[RESOLVED] DIABETES TYPE 2 WITH HYPOGLYCEMIA--DUE TO MULTIPLE ORAL HYPOGLYCEMICS HTN ARTHRITIS Plan: IV FLUIDS MONITOR BP AND SERUM GLUCOSE H2 BLOCKERS DISCHARGE IN AM IF STABLE - Date & Time Date: 10/31/17 Time: 08:25
[2017-10-31] MEDS ORDERED: Pantoprazole 40 MG in Sodium Chloride 0.9% 100 ML IVPB SCH (09:00)
--- NOTE | 2017-10-31 09:17 | CARD ---
APPROVED REPORT Date of service: 10/30/2017 EKG Measurement Heart [id number] <Conclusion> Normal sinus rhythm Normal ECG
--- NOTE | 2017-10-31 11:51 | CT ---
Date of service: 10/30/2017 PROCEDURE: CT Abdomen and Pelvis with contrast HISTORY: ABD PAIN AND DIARRHEA COMPARISON: None. TECHNIQUE: Contrast dose: 95 cc Omnipaque 300. Radiation dose: Total exam DLP = 750.97 mGy-cm. This CT exam was performed using one or more of the following dose reduction techniques: Automated exposure control, adjustment of the mA and/or kV according to patient size, and/or use of iterative reconstruction technique. FINDINGS: LOWER THORAX: Unremarkable. LIVER: Hepatic steatosis. No focal masses. No intrahepatic bile duct dilatation or perihepatic ascites. GALLBLADDER AND BILE DUCTS: Contracted gallbladder. PANCREAS: Unremarkable. No gross lesion or ductal dilatation. SPLEEN: Unremarkable. ADRENALS: Unremarkable. No mass. KIDNEYS AND URETERS: Unremarkable. No hydronephrosis. No solid mass. VASCULATURE: Unremarkable. No aortic aneurysm. BOWEL: Unremarkable. No obstruction. No gross mural thickening. APPENDIX: Normal appendix. PERITONEUM: Unremarkable. No free fluid. No free air. LYMPH NODES: Unremarkable. No enlarged lymph nodes. BLADDER: Unremarkable. REPRODUCTIVE: Unremarkable. BONES: No acute fracture. OTHER FINDINGS: None. IMPRESSION: No significant or acute findings to account for/ related to the clinical presentation. Additional benign and/or incidental findings described above. Concordant results (preliminary interpretation) provided by [facility]. Procedure Completed: 23:10 Preliminary ([facility]) Report: Dictated and Authenticated: 23:31. Final Interpretation: 11:49. October 31, 2017.
[2017-11-01] MEDS ORDERED: Pneumococcal 23-Valent Vaccine IM ONE (06:00)
[2017-11-01] MEDS ORDERED: Alum-Mag Hydrox-Simethicone Susp (30 mL) PO ONE (06:05)
[2017-11-01 06:11] VITALS: TEMP 98.1
[2017-11-01 08:15] VITALS: BP 171/66; PULSE 63; RESP 20
--- NOTE | 2017-11-01 08:44 | CP.PCM.DIS ---
Provider - Provider Date of Admission: 10/30/17 23:50 Attending physician: Arthur Santos MD Time Spent in preparation of Discharge (in minutes): 35 Diagnosis - Discharge Diagnosis (1) Diabetes 1.5, managed as type 2 Status: Acute (2) Hypertension Status: Acute (3) Abdominal pain Status: Acute (4) Arthritis Status: Acute (5) Hypoglycemia Status: Acute Hospital Course - Lab Results Lab Results: Micro Results 10/30/17 23:05 Urine,Clean Catch Urine Culture - Final Gram Negative [place] Most Recent Lab Values WBC 9.3 K/uL (4.8-10.8) 10/30/17 20:06 RBC 3.72 Mil/uL (3.80-5.20) L 10/30/17 20:06 Hgb 10.6 g/dL (12.0-16.0) L 10/30/17 20:06 Hct 31.8 % (34.0-47.0) L 10/30/17 20:06 MCV 85.6 fl (81.0-99.0) 10/30/17 20:06 MCH 28.5 pg (27.0-31.0) 10/30/17 20:06 MCHC 33.3 g/dL (33.0-37.0) 10/30/17 20:06 RDW 13.3 % (11.5-14.5) 10/30/17 20:06 Plt Count 282 K/uL (130-400) 10/30/17 20:06 MPV 7.2 fl (7.2-11.7) 10/30/17 20:06 Neut % (Auto) 72.4 % (50.0-75.0) 10/30/17 20:06 Lymph % (Auto) 18.4 % (20.0-40.0) L 10/30/17 20:06 [place] % (Auto) 8.0 % (0.0-10.0) 10/30/17 20:06 Eos % (Auto) 0.8 % (0.0-4.0) 10/30/17 20:06 Baso % (Auto) 0.4 % (0.0-2.0) 10/30/17 20:06 Neut # (Auto) 6.7 K/uL (1.8-7.0) 10/30/17 20:06 Lymph # (Auto) 1.7 K/uL (1.0-4.3) 10/30/17 20:06 [place] # (Auto) 0.7 K/uL (0.0-0.8) 10/30/17 20:06 Eos # (Auto) 0.1 K/uL (0.0-0.7) 10/30/17 20:06 Baso # (Auto) 0.0 K/uL (0.0-0.2) 10/30/17 20:06 PT 11.0 Seconds (9.8-13.1) 10/30/17 20:06 INR 1.0 10/30/17 20:06 APTT 38.1 Seconds (25.6-37.1) H 10/30/17 20:06 Sodium 140 mmol/l (132-148) 10/31/17 07:04 Potassium 4.1 MMOL/L (3.6-5.0) 10/31/17 07:04 Chloride 103 mmol/L (98-107) 10/31/17 07:04 Carbon Dioxide 27 mmol/L (22-30) 10/31/17 07:04 Anion Gap 14 (10-20) 10/31/17 07:04 BUN 21 mg/dl (7-17) H 10/31/17 07:04 Creatinine 0.7 mg/dl (0.7-1.2) 10/31/17 07:04 Est GFR ( Amer) > 60 10/31/17 07:04 Est GFR (Non-Af Amer) > 60 10/31/17 07:04 POC Glucose (mg/dL) 136 mg/dL (65-110) H 11/01/17 06:15 Random Glucose 106 mg/dL (65-105) H 10/31/17 07:04 Lactic Acid 1.8 MMOL/L (0.7-2.1) 10/30/17 20:06 Calcium 9.1 mg/dL (8.4-10.2) 10/31/17 07:04 Phosphorus 4.1 mg/dl (2.5-4.5) 10/30/17 20:06 Magnesium 1.6 MG/DL (1.6-2.3) 10/30/17 20:06 Total Bilirubin 0.3 mg/dl (0.2-1.3) 10/30/17 20:06 AST 37 U/L (14-36) H 10/30/17 20:06 ALT 26 U/L (9-52) 10/30/17 20:06 Alkaline Phosphatase 72 U/L (38-126) 10/30/17 20:06 Troponin I < 0.0120 ng/mL (0.00-0.120) 10/30/17 20:06 Total Protein 7.1 G/DL (6.3-8.2) 10/30/17 20:06 Albumin 4.0 g/dL (3.5-5.0) 10/30/17 20:06 Globulin 3.1 gm/dL (2.2-3.9) 10/30/17 20:06 Albumin/Globulin Ratio 1.3 (1.0-2.1) 10/30/17 20:06 Lipase 349 U/L (23-300) H 10/30/17 20:06 Urine Color Yellow (YELLOW) 10/30/17 23:05 Urine Clarity Slighty-cloudy (Clear) 10/30/17 23:05 Urine pH 5.0 (5.0-8.0) 10/30/17 23:05 Ur Specific [place] 1.016 (1.003-1.030) 10/30/17 23:05 Urine Protein Negative mg/dL (NEGATIVE) 10/30/17 23:05 Urine Glucose (UA) 50 mg/dL (Normal) 10/30/17 23:05 Urine Ketones Negative mg/dL (NEGATIVE) 10/30/17 23:05 Urine Blood Negative (NEGATIVE) 10/30/17 23:05 Urine Nitrate Negative (NEGATIVE) 10/30/17 23:05 Urine Bilirubin Negative (NEGATIVE) 10/30/17 23:05 Urine Urobilinogen 0.2-1.0 mg/dL (0.2-1.0) 10/30/17 23:05 Ur Leukocyte Esterase [place]/uL (Negative) 10/30/17 23:05 Urine RBC (Auto) 2 /hpf (0-3) 10/30/17 23:05 Urine Microscopic WBC 8 /hpf (0-5) H 10/30/17 23:05 Ur Squamous Epith Cells 3 /hpf (0-5) 10/30/17 23:05 Urine Bacteria Few (<OCC) H 10/30/17 23:05 Alcohol, Quantitative < 10 mg/dl (0-10) 10/30/17 20:06 - Hospital Course Hospital Course: ABDOMINAL PAIN RESOLVED HYPOGLYCEMIA RESOLVED Discharge Exam - Head Exam Head Exam: ATRAUMATIC, NORMAL INSPECTION, NORMOCEPHALIC Discharge Plan - Follow Up Plan Condition: STABLE Disposition: HOME/ ROUTINE Patient education suggested?: Yes Additional Instructions: D/C ALL ORAL HYPOGLYCEMICS EXCEPT METFORMIN DISCHARGE TODAY FOLLOW UP WITH PMD
[2017-11-01] MEDS ORDERED: Insulin Regular 100 units/ml SC ONE (12:11)
[2017-11-01 15:17] VITALS: O2SAT 99
== END 2017-11-01 14:05 | disposition home or self-care (01) ==
LOC: H.ER 19:15 → H.ERHOLD 23:50 → H.MEDSURG1 10-31 20:20
PROVIDERS: ADMIT Internal Medicine Pulmonary Disease; ATTEND Internal Medicine Pulmonary Disease
DX: R10.32 Left lower quadrant pain (principal); R10.31 Right lower quadrant pain; R19.7 Diarrhea, unspecified; E11.649 Type 2 diabetes mellitus with hypoglycemia without coma; I10 Essential (primary) hypertension; E78.00 Pure hypercholesterolemia, unspecified; J45.909 Unspecified asthma, uncomplicated; M19.90 Unspecified osteoarthritis, unspecified site; F41.9 Anxiety disorder, unspecified; Z23 Encounter for immunization; Z79.84 Long term (current) use of oral hypoglycemic drugs
CPT/HCPCS: 74177; 80048; 80053; 81003; 82948; 83605; 83690; 83735; 84100; 84484; 85025; 85610; 85730; 87086; 90732; 93005; 96374; 99285; C9113; G0009; G0378; G0480; J1885; J7042; Q9966; Q9967